=== PATIENT | female | born 1960 | race Caucasian/White ===

== ENCOUNTER → 2023-10-27 08:28 | Outpatient (REF) | payer BC, SELFPAY | LOC: HWRAD 08:28 | PROVIDERS: ATTENDING PHYSICIAN Nurse Practitioner | DX: Z12.31 Encounter for screening mammogram for malignant neoplasm of breast (principal); Z13.820 Encounter for screening for osteoporosis; Z78.0 Asymptomatic menopausal state | CPT/HCPCS: 77063; 77067; 77080 ==

== ENCOUNTER 2024-09-20 09:00 | Outpatient (RCR) | payer BC, SELFPAY | END 2024-10-10 11:06 | disposition home or self-care (01) | LOC: PURB 09:00 | PROVIDERS: ATTENDING PHYSICIAN Internal Medicine Pulmonary Disease; FAMILY PHYSICIAN Nurse Practitioner | DX: D86.9 Sarcoidosis, unspecified (principal); Z94.2 Lung transplant status | CPT/HCPCS: G0237 ==

== ENCOUNTER 2024-11-08 10:45 | Outpatient (RCR) | payer BC, SELFPAY | END 2024-11-09 10:47 | disposition home or self-care (01) | LOC: PURB 10:45 | PROVIDERS: ATTENDING PHYSICIAN Internal Medicine Pulmonary Disease; FAMILY PHYSICIAN Nurse Practitioner | DX: D86.9 Sarcoidosis, unspecified (principal); Z94.2 Lung transplant status | CPT/HCPCS: G0239 ==

== ENCOUNTER 2024-12-06 10:45 | Outpatient (RCR) | payer BC, SELFPAY | END 2024-12-10 09:41 | disposition home or self-care (01) | LOC: PURB 10:45 | PROVIDERS: ATTENDING PHYSICIAN Internal Medicine Pulmonary Disease; FAMILY PHYSICIAN Nurse Practitioner | DX: D86.9 Sarcoidosis, unspecified (principal); Z94.2 Lung transplant status | CPT/HCPCS: G0239 ==

== ENCOUNTER 2025-01-10 10:45 | Outpatient (RCR) | payer MEDICARE, BC, SELFPAY | END 2025-01-10 23:59 | disposition home or self-care (01) | LOC: PURB 10:45 | PROVIDERS: ATTENDING PHYSICIAN Internal Medicine Pulmonary Disease; FAMILY PHYSICIAN Nurse Practitioner | DX: D86.9 Sarcoidosis, unspecified (principal); Z94.2 Lung transplant status | CPT/HCPCS: G0239 ==